=== PATIENT | male | born 1995 | race Caucasian/White ===

== ENCOUNTER 2024-08-28 21:20 | Emergency (ER) | payer BC, SELFPAY ==
[2024-08-28 21:21] VITALS: BMI 30.3
[2024-08-28 21:28] VITALS: BP 155/99
[2024-08-28 21:42] LABS: % Basophils 1.1 % (0-2); % Eosinophils 1.3 % (0-6); % Immature Granulocytes 0.4 % (0-0.5); % Lymphocytes 25.1 % (20.5-51.1); % Monocytes 9.4 % (1.7-9.3); % Neutrophils 62.7 % (42.2-75.2); Absolute Basophils 0.1 10^3/uL (0-0.2); Absolute Eosinophils 0.1 10^3/uL (0-0.7); Absolute Monocytes 0.8 10^3/uL (0.1-0.6); Hematocrit 47.4 % (39.0-52.0); Hemoglobin 16.5 g/dL (13.0-18.0); Mean Corp Hgb Conc. 34.8 g/dL (33.0-37.0); Mean Corpuscular Hgb 29.9 pg (27.0-31.0); Mean Corpuscular Volume 85.9 fL (80.0-94.0); Mean Platelet Volume 10.6 fL (7.4-10.4); Nucleated Red Blood Cells % 0 % (-); Platelet Count 266 10^3/uL (130-400); Red Blood Cell Count 5.52 10^6/uL (4.70-6.10); Red Cell Dist. Width 13.4 % (11.5-14.5)
[2024-08-28 21:58] LABS: ALT (SGPT) 35 U/L (0-50); AST (SGOT) 28 U/L (17-59); Albumin 4.6 g/dl (3.5-5.0); Alkaline Phosphatase 111 U/L (38-126); Blood Urea Nitrogen 17 mg/dl (9-20); Calcium 10.1 mg/dl (8.4-10.2); Carbon Dioxide 29 mmol/L (22-30); Chloride 102 mmol/L (98-107); Glucose 99 mg/dl (70-99); Potassium 4.2 mmol/L (3.5-5.1); Sodium 141 mmol/L (135-145); Total Bilirubin 0.8 mg/dl (0.2-1.3); Total Protein 7.6 g/dl (6.3-8.2); eGFR > 60.00
[2024-08-28 23:38] VITALS: BP 147/95
[2024-08-29] VITALS: BP 144/98
--- NOTE | 2024-08-29 00:09 | ED.SKININJ ---
HPI-Injury
General
Chief Complaint: Skin Surface Trauma
Source: patient and family
Exam Limitations: none
Time Seen by Provider: 08/28/24 23:46
Nursing documentation reviewed up to this point in time: agreed with
History of Present Illness-Injury
Initial Injury comments:
Pleasant 29-year-old male presents emergency department with a hard lump on the back of his head. He states that he had it for longer than 10 years but states it has been getting bigger recently. Does states that he had blurry vision and left arm
numbness but also admits that he has been under a lot of stress with school lately and sometimes he gets some stress. Denies fever, chills, nausea or vomiting. Does see a plastic tool maker but has not mentioned this to her. Accompanied by mom and dad
who are present at the bedside.
Review of Systems
Review of Systems
Allergies reviewed?: Yes
All Other Systems: ROS reviewed and negative except as documented in HPI and ROS
Constitutional: Reports no symptoms
EENT: Reports no symptoms
Respiratory: Reports no symptoms
Cardiac: Reports no symptoms
ABD/GI: Reports no symptoms
: Reports no symptoms
Musculoskeletal: Reports no symptoms
Skin: Reports other (Firm nonmobile mass to the posterior scalp on the left)
Neurological: Reports no symptoms
Endocrine: Reports no symptoms
Hematologic/Lymphatic: Reports no symptoms
Psychiatric: Reports anxiety
Phy Exam
General Physical Exam
General Presentation: well appearing and no apparent distress
General Skin: warm and dry
General Habitus: normal
General Mental: alert and anxious
ENT Exam
ENT Exam: EOMI and neck supple
Cardiovascular Exam
Cardiovascular Exam: no edema
Pulmonary Exam
Pulmonary Exam: no respiratory distress
Neurological Exam
Neurological Exam: alert and oriented x3
Musculoskeletal Exam
Musculoskeletal Exam: full ROM, no edema and neuro vasc intact
Skin Exam
Skin Exam: normal color and warm/dry
Psychiatric Exam
Psychiatric Exam: normal mood/affect and anxious
Course
Orders/Labs/Results
Orders:
Orders
08/28/24 21:35
CBC/With Diff [Complete Blood Count/With Diff] Urgent
CMP [Comprehensive Metabolic Panel] Urgent
08/29/24 00:16
Electrocardiogram (*1) Urgent
Reason for Study: Other
Other Reason for Exam: arm pain
EKG- Treatment ONCE
Abnormal Lab Results
08/28/24
21:35
MPV 10.6 H fL
(7.4-10.4)
Absolute Monos (auto) 0.8 H 10^3/uL
(0.1-0.6)
Monocytes % 9.4 H %
(1.7-9.3)
08/28/24 21:35
08/28/24 21:35
Vital Signs
Initial and Last Documented VS:
Initial Vital Signs
Temp Pulse Resp BP Pulse Ox
98.5 F 90 15 155/99 98
08/28/24 21:28 08/28/24 21:28 08/28/24 21:28 08/28/24 21:28 08/28/24 21:28
Last Documented Vital Signs
Temp Pulse Resp BP Pulse Ox
98.5 F 90 15 144/98 100
08/28/24 21:28 08/28/24 21:28 08/28/24 21:28 08/29/24 00:00 08/29/24 00:00
*Critical Care Note
Total Time (30-74mins, 75-104mins- exclusive of procedures): Not Applicable
ED Attending Note
-
Portions of this chart may have been created with voice recognition software.� Occasional wrong word or��sound alike� substitutions may have occurred due to the inherent limitations of voice recognition software.
Discharge Plan
Departure
Patient Disposition: Home (Routine Discharge)
Date of Disposition: 08/29/24
Time of Disposition: 00:17
Patient with high blood pressure during this ER visit?: Yes
Condition: Good
Discharge Problem:
Skin mass scalp
Instructions: Skin lesion removal, BLOOD PRESSURE
Referrals:
NONE,* [Family Provider] -
Josie Diaz MD [Consulting Staff] - As needed
Activity Restrictions/Additional Instructions:
As discussed, please follow-up with your plastic tool maker.
Thank You for choosing [facility].
It was a pleasure meeting you and taking part in your care. We hope for your continued healing and wellness.
Please read discharge instructions in their entirety. However, they are for general education and may not describe your exact diagnosis at discharge. Information on your ER visit and medical conditions were discussed with you along with appropriate
follow up information...
If indicated, please take your medications as instructed and indicated on discharge paperwork.
Please schedule a follow up appointment as directed. Call to schedule an appointment
Please return to the emergency department with ANY change in, persisting, or worsening of symptoms. If any of your symptoms do not improve, or persist, or become more severe within 6-12 hours, please return to the emergency department for further
care.
Please return to the emergency department if you develop a headache, neck pain/stiffness, fever greater than 100.4F, chest pain, shortness of breath, persistent nausea, vomiting, slurred speech, difficulty walking, numbness/tingling, weakness, signs
of infection or any other symptoms that are worrisome to you.
If you have any questions or concerns please do not hesitate to call the Hospital at or E-mail me directly at [email or web address]
Interventions
Interventions:
*Risk Screen - Suicide Last Done: 08/28/24 21:28
*General Assessment Last Done: 08/28/24 21:28
*Neglect/Abuse Screening Last Done: 08/28/24 21:28
*ED- Fall Risk Assessment Last Done: 08/28/24 23:38
*ED COVID-19 Vaccine History Last Done: 08/28/24 23:38
ED-Skin Assessment Last Done: 08/28/24 23:38
Discharge Date and Time
Print Language: [id number]
[2024-08-29 01:00] VITALS: BP 125/89
== END 2024-08-29 01:39 | disposition home or self-care (01) ==
LOC: EMR 21:20
PROVIDERS: Emergency Medicine; EMERGENCY PHYSICIAN Student in an Organized Health Care Education/Training Program
DX: R22.0 Localized swelling, mass and lump, head (principal); H53.8 Other visual disturbances; R20.0 Anesthesia of skin
CPT/HCPCS: 99283; 80053; 85025; 93005